=== PATIENT | female | born 1940 | race Caucasian/White ===

== ENCOUNTER 2018-04-18 08:15 | Inpatient (IN) | payer OTHER ==
[~2018-04-18] VITALS: Ht 157.5 cm; Wt 69.4 kg
[2018-04-19] MEDS ORDERED: FORTAMET500 MG PO (10:38)
[2018-04-19] MEDS ORDERED: HUM (10:38)
[2018-04-19] MEDS ORDERED: HYDROCHLOROTH12.5 M1 PO (10:38)
[2018-04-19] MEDS ORDERED: HUM PO (10:39)
[2018-04-19] MEDS ORDERED: ZOCOR20 MG PO (10:39)
[2018-04-19] MEDS ORDERED: GLYBURIDE MICRON6 MG PO (10:40)
[2018-04-19] MEDS ORDERED: XARELTO20 MG PO (10:41)
[2018-04-22] MEDS ORDERED: COLACE100 MG PO (08:13)
[2018-04-22] MEDS ORDERED: ULTRACET PO (08:13)
== END 2018-04-22 09:47 | DRG 735 ==
LOC: EDSTATUS 08:15 → ADM 08:15 → O/R 04-21 05:10 → OB/GYN 04-21 05:10
PROVIDERS: Obstetrics & Gynecology Gynecologic Oncology
PROC: 0UT94ZZ Resection of Uterus, Percutaneous Endoscopic Approach (ICD-10-PCS; 2018-04-21)
PROC: 0UT24ZZ Resection of Bilateral Ovaries, Percutaneous Endoscopic Approach (ICD-10-PCS; 2018-04-21)
PROC: 0UT74ZZ Resection of Bilateral Fallopian Tubes, Percutaneous Endoscopic Approach (ICD-10-PCS; 2018-04-21)
PROC: 07TC4ZZ Resection of Pelvis Lymphatic, Percutaneous Endoscopic Approach (ICD-10-PCS; principal; 2018-04-21 09:30)
DX: D06.7 Carcinoma in situ of other parts of cervix (principal)

== ENCOUNTER → 2018-05-08 | Emergency (ER) | payer OTHER ==
[~2018-05-08] VITALS: Ht 157.5 cm; Wt 69.4 kg
[~2018-05-08] MED LIST: COLACE100 MG PO; FORTAMET500 MG PO; GLYBURIDE MICRON6 MG PO; HUM; HUM PO; HYDROCHLOROTH12.5 M1 PO; ULTRACET PO; XARELTO20 MG PO; ZOCOR20 MG PO
== END | disposition home or self-care (01) ==
LOC: ER 11:10
DX: N93.8 Other specified abnormal uterine and vaginal bleeding (principal); N99.821 Postprocedural hemorrhage of a genitourinary system organ or structure following other procedure